=== PATIENT | female | born 1995 | race Caucasian/White ===

== ENCOUNTER 2019-04-01 07:23 | Emergency (ER) | payer OTHER ==
--- NOTE | 2019-04-01 07:54 | UC ---
Complaint Female HPI - HPI Summary HPI Summary: 4 days of dysuria, urinary frequency and burning. Azo OTC was helping initially that not anymore. Now has mild back pain. Feels like UTIs she has had in the past. No fever, nausea/vomiting. - History Of Current Complaint Chief Complaint: UCGU Stated Complaint: LOWER BACK PAIN Time Seen by Provider: 04/01/19 07:26 Hx Obtained From: Patient Hx Last Menstrual Period: does get Onset/Duration: Gradual Onset, Lasting Days, Still Present Timing: Constant Severity Initially: Moderate Severity Currently: Moderate Pain Intensity: 6 Pain Scale Used: 0-10 Numeric Character: Burning Aggravating Factor(s): Urination Alleviating Factor(s): Nothing Associated Signs And Symptoms: Positive: Back Pain. Negative: Fever, Vaginal Bleeding/Discharge, Nausea - Allergies/Home Medications Allergies/Adverse Reactions: Allergies Allergy/AdvReac Type Severity Reaction Status Date / Time No Known Allergies Allergy Verified 11/20/15 08:04 PMH/Surg Hx/FS Hx/Imm Hx Previously Healthy: Yes - Surgical History Surgical History: None - Family History Known Family History: Positive: None - Social History Alcohol Use: None Substance Use Type: None Smoking Status (MU): Never Smoked Tobacco - Immunization History Vaccination Up to Date: Yes Review of Systems All Other Systems Reviewed And Are Negative: Yes Constitutional: Positive: Negative Respiratory: Positive: Negative Cardiovascular: Positive: Negative Gastrointestinal: Positive: Abdominal Pain Genitourinary: Positive: Dysuria, Frequency, Urgency Physical Exam Triage Information Reviewed: Yes Appearance: Well-Appearing, No Pain Distress, Well-Nourished Vital Signs: Initial Vital Signs Temp 98.5 F 04/01/19 07:30 Pulse 82 04/01/19 07:30 Resp 16 04/01/19 07:30 BP 164/96 04/01/19 07:30 Pulse Ox 98 04/01/19 07:30 Laboratory Tests 04/01/19 07:40 POC Urine Color Yellow POC Urine Clarity Slightly cloudy POC Urine pH 5.5 POC Ur Specif [place] 1.025 POC Urine Protein 2+ A POC Ur Glucose (UA) Negative POC Urine Ketones Negative POC Urine Blood Trace-intact A POC Urine Nitrite Negative POC Urine Bilirubin 1+ A POC Urine Urobilinogen 1.0 POC U Leukocyte Esteras 1+ A Eyes: Positive: Conjunctiva Clear ENT: Positive: Hearing grossly normal Neck: Positive: Supple Respiratory: Positive: No respiratory distress, No accessory muscle use Cardiovascular: Positive: Pulses Normal Abdomen Description: Positive: Soft. Negative: CVA Tenderness (R), CVA Tenderness (L), Distended, Guarding Musculoskeletal: Positive: No Edema Neurological: Positive: Alert Psychological: Positive: Age Appropriate Behavior Skin: Negative: Rashes Complaint Female Dx - Differential Dx/Diagnosis Provider Diagnosis: UTI (urinary tract infection) Discharge - Sign-Out/Discharge Documenting (check all that apply): Patient Departure All imaging exams completed and their final reports reviewed: No Studies - Discharge Plan Condition: Stable Disposition: HOME Prescriptions: Phenazopyridine TAB* [Pyridium TAB*] 200 mg PO TID #6 tab Sulfamethox/Trimethoprim DS* [Bactrim DS 800/160 TAB*] 1 tab PO BID #10 tab Patient Education Materials: Urinary Tract Infection in Women (ED) Referrals: Bridgette Reyes MD [Primary Care Provider] - If Needed Additional Instructions: WE WILL SEND YOUR URINE FOR CULTURE AND CALL YOU IF YOUR TREATMENT NEEDS TO BE MODIFIED. YOUR BLOOD PRESSURE WAS ELEVATED TODAY (164/96). THIS MAY BE DUE TO YOUR ACUTE CONDITION. MONITOR AND FOLLOW-UP WITH YOUR PCP WITHIN 4 WEEKS IF IT HAS NOT RETURNED TO NORMAL. - Billing Disposition and Condition Condition: STABLE Disposition: Home
[2019-04-01 08:03] VITALS: BP 158/88
--- NOTE | 2019-04-02 15:37 | UC ---
- Progress Note Progress Note: Urine culture shows few enterobacteria, which could indicate possible contamination. If pt's symptoms are improved with anbx - no change and may complete course. If symptoms persisting - should f/u with PCP for recheck Course/Dx - Diagnoses Provider Diagnoses: UTI (urinary tract infection) Discharge - Sign-Out/Discharge Documenting (check all that apply): Post-Discharge Follow Up All imaging exams completed and their final reports reviewed: No Studies - Discharge Plan Condition: Stable Disposition: HOME Prescriptions: Phenazopyridine TAB* [Pyridium TAB*] 200 mg PO TID #6 tab Sulfamethox/Trimethoprim DS* [Bactrim DS 800/160 TAB*] 1 tab PO BID #10 tab Patient Education Materials: Urinary Tract Infection in Women (ED) Referrals: Bridgette Reyes MD [Primary Care Provider] - If Needed Additional Instructions: WE WILL SEND YOUR URINE FOR CULTURE AND CALL YOU IF YOUR TREATMENT NEEDS TO BE MODIFIED. YOUR BLOOD PRESSURE WAS ELEVATED TODAY (164/96). THIS MAY BE DUE TO YOUR ACUTE CONDITION. MONITOR AND FOLLOW-UP WITH YOUR PCP WITHIN 4 WEEKS IF IT HAS NOT RETURNED TO NORMAL. - Billing Disposition and Condition Condition: STABLE Disposition: Home
== END 2019-04-01 08:03 | disposition home or self-care (01) ==
LOC: UCEAST 07:23
DX: N39.0 Urinary tract infection, site not specified (principal); R30.0 Dysuria; R35.0 Frequency of micturition
CPT/HCPCS: 81003; 87086; 99212; G0463

== ENCOUNTER 2019-04-02 09:25 | Emergency (ER) | payer OTHER ==
--- NOTE | 2019-04-02 10:07 | ED ---
Abdominal Pain/Female - HPI Summary HPI Summary: Patient is a 23-year-old female presenting to the ED with a recent diagnosis of kidney infection. She states she was seen at urgent care yesterday due to bilateral flank pain. She was diagnosed with a kidney infection and placed on Bactrim. It was found at that time she had elevated BP of 168/100. She was told to follow-up with her PCP within 4 weeks for a recheck. Patient is currently not on BP medications. She states she is otherwise healthy, although she is obese. She denies any UTI symptoms currently, but continues to endorse bilateral flank pain. Denies any gross hematuria. Denies any abdominal pain, nausea, vomiting, diarrhea, constipation. She did have episodes of nausea and vomiting yesterday, but denies any today. Denies any fevers, sweats, chills. Denies any CP, however is endorsing mild SOB. She states this is new for her and has no history of asthma. She is here today to assess her elevated BP. She is endorsing a mild headache. - History of Current Complaint Chief Complaint: EDGeneral Stated Complaint: HIGH BLOOD PRESSURE PER PT Time Seen by Provider: 04/02/19 09:31 Hx Obtained From: Patient Hx Last Menstrual Period: does get ?: No Onset/Duration: Sudden Onset Timing: Constant Severity Initially: Moderate Severity Currently: Moderate Pain Intensity: 7 Pain Scale Used: 0-10 Numeric Radiates: No Radiates to: Flank - bilateral Aggravating Factor(s): Nothing Alleviating Factor(s): Nothing Associated Signs and Symptoms: Positive: Negative - Risk Factors Ectopic Risk Factor: Negative Ovarian Torsion Risk Factor: Reproductive Age Allergies/Adverse Reactions: Allergies Allergy/AdvReac Type Severity Reaction Status Date / Time No Known Allergies Allergy Verified 04/02/19 09:35 PMH/Surg Hx/FS Hx/Imm Hx Previously Healthy: Yes Endocrine/Hematology History: Denies: Hx Diabetes, Hx Thyroid Disease Cardiovascular History: Denies: Hx Hypertension Respiratory History: Denies: Hx Asthma, Hx Chronic Obstructive Pulmonary Disease (COPD) GI History: Denies: Hx Ulcer - Immunization History Hx Pertussis Vaccination: No Immunizations Up to Date: Yes Infectious Disease History: No Infectious Disease History: Denies: Hx Hepatitis, Hx Human Immunodeficiency Virus (HIV), Traveled Outside the [place] in Last 30 Days - Family History Known Family History: Positive: None - Social History Occupation: Employed Full-time Lives: With Family Alcohol Use: None Hx Substance Use: No Substance Use Type: Reports: None Hx Tobacco Use: No Smoking Status (MU): Never Smoked Tobacco Review of Systems Constitutional: Negative Negative: Fever, Chills, Fatigue, Skin Diaphoresis Negative: Palpitations, Chest Pain Negative: Shortness Of Breath, Cough Positive: Nausea Genitourinary: Negative Positive: no symptoms reported, see HPI Negative: Arthralgia, Myalgia Skin: Negative All Other Systems Reviewed And Are Negative: Yes Physical Exam Triage Information Reviewed: Yes Vital Signs On Initial Exam: Initial Vitals Temp Pulse Resp BP Pulse Ox 98.2 F 100 18 164/107 98 04/02/19 09:25 04/02/19 09:25 04/02/19 09:25 04/02/19 09:25 04/02/19 09:25 Vital Signs Reviewed: Yes Appearance: Positive: Well-Appearing, Well-Nourished Skin: Positive: Skin Color Reflects Adequate Perfusion Head/Face: Positive: Normal Head/Face Inspection Eyes: Positive: EOMI, Conjunctiva Clear Neck: Positive: No Lymphadenopathy Respiratory/Lung Sounds: Positive: Clear to Auscultation, Breath Sounds Present Cardiovascular: Positive: RRR, Pulses are Symmetrical in both Upper and Lower Extremities Abdomen Description: Positive: Nontender, No Organomegaly, Soft. Negative: CVA Tenderness (R), CVA Tenderness (L) Musculoskeletal: Positive: Normal, Strength/ROM Intact Neurological: Positive: Alert, Oriented to Person Place, Time Diagnostics - Vital Signs Vital Signs Temp Pulse Resp BP Pulse Ox 04/02/19 09:35 99 99 04/02/19 09:25 98.2 F 100 18 164/107 98 - Laboratory Result Diagrams: 04/02/19 09:59 04/02/19 09:59 Lab Statement: Any lab studies that have been ordered have been reviewed, and results considered in the medical decision making process. Abdominal Pain Fem Course/Dx - Course Course Of Treatment: During this course of treatment, the patient is evaluated for elevated BP as well as recent diagnosis of kidney infection. She was placed on Bactrim yesterday and has taken 2 doses. She continues to deny any fevers, sweats, chills. Denies any nausea or vomiting currently, however had this yesterday. Patient states she would like to be evaluated for her elevated BP. BP on arrival is 164/107. Labs obtained and are WNL. Repeat BP is 156/ 90. Patient has been complaining of a headache for the past 3 weeks. It was explained to the patient is a possibility her elevated BP is due to her having a headache. She denies any flank pain currently. Patient is DC'd with hypertension. - Diagnoses Differential Diagnosis: Positive: Renal Colic, Urinary Tract Infection Provider Diagnoses: Hypertension Discharge - Sign-Out/Discharge Documenting (check all that apply): Patient Departure Patient Received Moderate/Deep Sedation with Procedure: No - Discharge Plan Condition: Stable Disposition: HOME Patient Education Materials: Hypertension (ED) Referrals: Bridgette Reyes MD [Primary Care Provider] - Additional Instructions: Please follow up with your hypertension - Billing Disposition and Condition Condition: STABLE Disposition: Home
[2019-04-02 10:19] LABS: ABS Basophils 0.1 10^3/ul (0-0.2); ABS Eosinophils 0.1 10^3/ul (0-0.6); ABS Lymphocytes 2.6 10^3/ul (1.0-4.8); ABS Monocytes 0.7 10^3/ul (0-0.8); ABS Neutrophils 5.4 10^3/ul (1.5-7.7); Eosinophil % 1.3 %; Hematocrit 43 % (35-47); Hemoglobin 14.8 g/dL (12.0-16.0); Mean Corpuscular HGB Conc 34 g/dL (31-36); Mean Corpuscular Hemoglobin 31 pg (27-31); Mean Corpuscular Volume 90 fL (80-97); Mean Platelet Volume 8.6 fL (7.4-10.4); Nucleated Red Blood Cells % 0.1; Platelet Count 306 10^3/uL (150-450); Red Cell Distribution Width 13 % (10-15); White Blood Count 8.9 10^3/uL (3.5-10.8)
[2019-04-02 10:23] LABS: Albumin 4.5 g/dL (3.2-5.2); Anion Gap 9 mmol/L (2-11); CO2 Carbon Dioxide 25 mmol/L (22-32); Calcium 10.3 mg/dL (8.6-10.3); Chloride 104 mmol/L (101-111); Magnesium 1.9 mg/dL (1.9-2.7); Sodium 138 mmol/L (135-145)
[2019-04-02 10:29] LABS: ALT 37 U/L (7-52); AST 25 U/L (13-39); Albumin/Globulin Ratio 1.4 (1-3); Alkaline Phosphatase 60 U/L (34-104); BUN/Creatinine Ratio 14.6 (8-20); Blood Urea Nitrogen 15 mg/dL (6-24); C Reactive Protein 4.47 mg/L (<8.01); EGFR African American 81.8 (>60); EGFR Non-African American 67.6 (>60); Globulin 3.2 g/dL (2-4); Glucose 95 mg/dL (70-100); Total Protein 7.7 g/dL (6.4-8.9)
[2019-04-02 11:06] LABS: HCG Pregnancy < 0.60 mIU/mL
[2019-04-02 11:37] VITALS: BP 184/108
[2019-04-02 11:44] LABS: Urine Appearance Cloudy; Urine Bilirubin Negative (Negative); Urine Blood Negative (Negative); Urine Color Amber; Urine Glucose Negative (Negative); Urine Ketones Negative (Negative); Urine Nitrite Negative (Negative); Urine Protein Negative (Negative); Urine Specific Gravity 1.016 (1.010-1.030); Urine Urobilinogen Negative (Negative)
== END 2019-04-02 11:41 | disposition home or self-care (01) ==
LOC: ED 09:25
DX: I10 Essential (primary) hypertension (principal); E66.9 Obesity, unspecified; Z68.42 Body mass index [BMI] 45.0-49.9, adult
CPT/HCPCS: 36415; 80053; 81003; 83605; 83690; 83735; 84702; 85025; 86140; 99283

== ENCOUNTER 2019-12-11 07:47 | Emergency (ER) | payer OTHER ==
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
--- OUTSIDE RECORDS SUMMARY | 2019-12-11 07:56 | XMS REPORT | Continuity of Care Document ---
:1995 External Reference #:[id number] Author Name Milli Ghotra M.D. (transmitted by agent of provider Lisset Clayton) Address [address] [place] [address] Care Team Providers Name Role Phone Bridgette Reyes MD - Care Team Information Marketing Project Lead [phone] Family Medicine Problems Description No Information Available Social History Type Date Description Comments Sex Unknown Tobacco Use Start: Unknown Never Smoked Cigarettes Smoking Status Reviewed: 11/19/19 Never Smoked Cigarettes ETOH Use Rarely consumes alcohol Tobacco Use Start: Unknown Patient has never smoked Recreational Drug Use Denies Drug Use Exercise Type/Frequency Exercises regularly gym 2-3 times per week, bike, treadmill and ellipticle Allergies, Adverse Reactions, Alerts Active Allergies Reaction Severity Comments Date Victoza nausea and vomiting 07/31/2018 Inactive Allergies NKDA 07/28/2018 Medications Active Medications SIG Qnty Indications Ordering Provider Date Amlodipine Besylate 1 by mouth every Unknown 5mg day Tablets Metformin HCL 1 by mouth twice Unknown 500mg Tablets a day Bupropion Unknown Immunizations Description No Information Available Vital Signs Date Vital Result Comment 11/19/2019 11:34am Height 62 inches 5'2" Heart Rate 86 /min BP Systolic 138 mmHg BP Diastolic 86 mmHg Respiratory Rate 22 /min O2 % BldC Oximetry 98 % 05/19/2019 8:04am Height 62 inches 5'2" Heart Rate 92 /min BP Systolic 130 mmHg BP Diastolic 82 mmHg Respiratory Rate 18 /min Body Temperature 98.0 F Pain Level 2 Results Description No Information Available Procedures Description No Information Available Medical Devices Description No Information Available Encounters Description No Information Available Assessments Description No Information Available Plan of Treatment Future Appointment(s):04/29/2020 4:30 pm - Lenore Batres MD at [facility] Functional Status Description No Information Available Mental Status Description No Information Available Referrals Description No Information Available
--- OUTSIDE RECORDS SUMMARY | 2019-12-11 07:56 | XMS REPORT | Continuity of Care Document ---
:1995 External Reference #:[id number] Author Name Carlene Smallwood O.D. Address [address] [place] [address] Care Team Providers Name Role Phone Bridgette Reyes M.D. - Family Care Team Information Adjunct Psychology Instructor Medicine Pooja Chan D.O. - Pediatrics Care Team Information Adjunct Psychology Instructor Problems Active Problems Provider Date Insulin resistance - type A Onset: Myopia Carlene Smallwood O.D. Onset: 06/18/2016 Tear film insufficiency Carlene Smallwood O.D. Onset: 10/25/2017 Social History Type Date Description Comments Sex Unknown ETOH Use Rarely consumes alcohol Tobacco Use Start: Unknown Patient has never smoked Recreational Drug Use Denies Drug Use Smoking Status Reviewed: 11/06/19 Patient has never smoked Allergies, Adverse Reactions, Alerts Description No Known Drug Allergies Medications Active Medications SIG Qnty Indications Ordering Provider Date Metformin HCL ER Take 2 Tablets By Unknown 500mg Mouth Twice A Day Tablets ER 24HR With Meals Amlodipine Besylate Take 2 To 3 Unknown 2.5mg Tablets By Mouth Tablets Once Daily Bupropion Hydrochloride Take 1 Tablet By Unknown ER (XL) Mouth Once Daily 150mg Tablets ER 24HR Immunizations Description No Information Available Vital Signs Description No Information Available Results Description No Information Available Procedures Description No Information Available Medical Devices Description No Information Available Encounters Description No Information Available Assessments Date Code Description Provider 11/06/2019 H04.123 Dry eye syndrome of bilateral lacrimal Carlene Smallwood O.D. glands 11/06/2019 H52.13 Myopia, bilateral Carlene Smallwood O.D. Plan of Treatment 11/06/2019 - Carlene Smallwood O.D.H04.123 Dry eye syndrome of bilateral lacrimal glandsComments:refresh rewetting drops for contacts 3-4 times a dayFollow up:1 Year Follow Up You can expect to have your eyes dilated at your next visit. If Dr. Smallwood orders any additional testing, it may require extra time. We recommend that you bring sunglasses, as dilation drops often make you light sensitive until they wear off. We always recommend you bring someone to drive you home if you are uncomfortable driving with your eyes dilated. If you have any questions before your next visit, feel free to call our office at .H52.13 Myopia, bilateralComments:You have Myopia, or near sightedness. I have given you a prescription for glasses. Functional Status Description No Information Available Mental Status Description No Information Available Referrals Description No Information Available
[2019-12-11 08:18] VITALS: BP 140/90
[2019-12-11 08:25] LABS: Influenza A Molecular POSITIVE (Negative)
[2019-12-11] MEDS ORDERED: Acetaminophen TAB* 325 MG PO ONE (08:46)
--- NOTE | 2019-12-11 08:57 | UC ---
FLU HPI - HPI Summary HPI Summary: Patient's 24-year-old female who states S Ray she developed a intermittent cough. Patient states last night she developed a fever. Patient with a sore throat and body aches. Patient without any nausea or vomiting. Patient has not taken any akfm-[id number]-ulebikr medications. 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 Patient to get the flu vaccine this year. Patient does have insulin resistance and is on metformin. Patient' s has a remote history of using inhaler for asthma but has not this time. Patient states she does not feel short of breath but states that when she coughs it feels tight. Patient states she's not pertinent. Medications as entered in the EMR reviewed this visit. - History of Current Complaint Chief Complaint: UCGeneralIllness Stated Complaint: SORE THROAT HEADACHE FEVER Time Seen by Provider: 12/11/19 08:34 Hx Obtained From: Patient Hx Last Menstrual Period: 12/11/19 Severity Currently: Mild Severity Initially: Mild Pain Intensity: 1 Pain Scale Used: 0-10 Numeric Associated Signs & Symptoms: Positive: Fever - Allergy/Home Medications Allergies/Adverse Reactions: Allergies Allergy/AdvReac Type Severity Reaction Status Date / Time No Known Allergies Allergy Verified 12/11/19 07:59 Home Medications: Home Medications amLODIPine TAB* [Norvasc 5 mg TAB*] 1 tab PO DAILY 12/11/19 [History Confirmed 12/11/19] buPROPion TAB* [Wellbutrin TAB*] 1 tab PO DAILY WITH MEAL 12/11/19 [History Confirmed 12/11/19] metFORMIN* [Glucophage 1000 MG TAB *] 1 tab PO DAILY 12/11/19 [History Confirmed 12/11/19] PMH/Surg Hx/FS Hx/Imm Hx Previously Healthy: Yes Endocrine History: Diabetes - insulin resistance- Polycystic ovary - Surgical History Surgical History: None - Family History Known Family History: Positive: Non-Contributory - Social History Occupation: Employed Full-time Lives: With Family Alcohol Use: Rare Substance Use Type: None Smoking Status (MU): Never Smoked Tobacco - Immunization History Vaccination Up to Date: Yes Review of Systems All Other Systems Reviewed And Are Negative: Yes Constitutional: Positive: Fever Skin: Positive: Negative Eyes: Positive: Negative ENT: Positive: Sore Throat, Nasal Discharge, Sinus Congestion Respiratory: Positive: Cough. Negative: Shortness Of Breath Cardiovascular: Positive: Negative Gastrointestinal: Positive: Negative Genitourinary: Positive: Negative Physical Exam - Summary Physical Exam Summary: Vital Signs Reviewed: Yes A+Ox3, no distress, intermittent cough Eyes: Conjunctiva Clear, FILOMENA. EOM intact and full ENT: Hearing grossly normal TM x 2 clear, turbinates inflammed and boggy, + PND , mmoist, uvula midline, no exudate, no erythema Neck: Positive: Supple Respiratory: Positive: No respiratory distress, No accessory muscle use + CTA throughout no w/r easy sentences Cardiovascular: RRR , borderline tachy, nl s1, s2 no m/r CBT <2 sec abd soft + BS nt/nd no guarding, no distension Musculoskeletal Exam: JAQUEZ x 4 without difficulty Strength Intact, ROM Intact Neurological: Positive: Alert, + sensation throughout Psychological: Positive: Normal Response To examiner Skin: Positive: no rash, no ecchymosis Triage Information Reviewed: Yes Vital Signs: Initial Vital Signs Temp 100.9 F 12/11/19 08:02 Pulse 122 12/11/19 08:02 Resp 18 12/11/19 08:02 BP 0/0 12/11/19 08:02 Pulse Ox 96 12/11/19 08:02 Flu Course/Dx - Course Course Of Treatment: Patient presents to urgent care reporting 12 hours of cough, body aches, fever. Patient denies short of breath but states it feels tight with coughing. No [id number] medications taken. On exam shows an elevated temperature and heart rate. Patient is nontoxic appearing with an intermittent cough. Patient does have sinus congestion postnasal drip. Patient's lungs are clear. Abdomen is soft. Patient's influenza A is positive. Patient ultrasound. Posterior patient on Tamiflu twice a day for 5 days. Patient with a total of 7 per hospital policy and recommendations. Encourage patient to stay hydrated. Reviewed secretion precautions. Motrin topical [id number] products. We' ll send the prescription report Tamiflu as well as an MDI should the patient needed. Patient comfortable in agreement with plan.. strict return precautions discussed. - Differential Dx/Diagnosis Provider Diagnosis: Influenza A Discharge ED - Sign-Out/Discharge Documenting (check all that apply): Patient Departure All imaging exams completed and their final reports reviewed: No Studies - Discharge Plan Condition: Stable Disposition: HOME Prescriptions: Albuterol HFA INHALER* [Ventolin HFA Inhaler*] 1 - 2 puff INH Q4H PRN #1 mdi PRN Reason: wheeze Oseltamivir Phosphate [Tamiflu] 75 mg PO BID #10 capsule Patient Education Materials: Influenza (ED) Forms: *Work Release Referrals: Bridgette Reyes MD [Primary Care Provider] - Additional Instructions: - Stay well hydrated. Drink plenty of non-alcoholic, non-caffinated beverages. - Alternate ibuprofen (Advil, Motrin) 600mg and Tylenol 1000mg every 3 hours for pain or fever. Take with food. Do NOT take for more than 4-5 days. - These infections are spread by secretions - do NOT share eating or drinking utensils - clean items you share with other people such as cell phones, computer mouse, TV remote, cot - Take Tamiflu as prescribed until gone - Okay to use inhaler - 2 puffs every 4 hours as needed for cough or wheeze - humidify the air in the room where you sleep - boil water, run a hot steam shower, vaporizer, cups of water by heat register - okay to take over the counter decongestant and cough medication - get plenty of restful sleep. - contact your doctor or return with questions or concerns - Billing Disposition and Condition Condition: STABLE Disposition: Home
[2019-12-11] MEDS ORDERED: Acetaminophen TAB* 325 MG ONE (08:58)
== END 2019-12-11 09:05 | disposition home or self-care (01) ==
LOC: UCEAST 07:47
DX: J10.1 Influenza due to other identified influenza virus with other respiratory manifestations (principal); E11.9 Type 2 diabetes mellitus without complications; J45.909 Unspecified asthma, uncomplicated; Z79.84 Long term (current) use of oral hypoglycemic drugs
CPT/HCPCS: 87651; 99202; A9270-GY; G0463

== ENCOUNTER 2023-10-20 20:13 | Inpatient (IN) ==
[2023-10-20] MEDS ORDERED: Oxytocin in LR 20,000 MILLI.UNIT/1,000 ML BAG IV ONE (20:36)
[2023-10-20] MEDS ORDERED: fentaNYL 100 mcg/2 ml 50 MCG/ML VIAL ONE (21:02)
[2023-10-20] MEDS ORDERED: Ondansetron 4 mg VIAL 2 MG/ML 2 ml VIAL ONE (21:46)
[2023-10-20] MEDS ORDERED: Dexamethasone IV 4 MG/ML VIAL 1 ml VIAL ONE (21:46)
[2023-10-20] MEDS ORDERED: Oxytocin 10 UNITS/ML 1 ML VIAL ONE (21:46)
[2023-10-20] MEDS ORDERED: KETAMINE HCL 10 MG/ML 20 ml VIAL (200 MG) ONE (21:46)
[2023-10-20] MEDS ORDERED: Succinylcholine 200 mg VIAL 20 mg/ml 10 ml VIAL (200 mg) ONE (21:46)
[2023-10-20] MEDS ORDERED: Midazolam 2 mg/2 ml VIAL 1 mg/ml 2 ml VIAL (2 mg) ONE (21:46)
[2023-10-20] MEDS ORDERED: Ondansetron 4 mg VIAL 2 MG/ML 2 ml VIAL IV PRN (21:59)
[2023-10-20] MEDS ORDERED: Sodium Citrate/Citric Acid LIQ 15 ML UDC PO ONE (21:59)
[2023-10-20] MEDS ORDERED: Metoclopramide 5 MG/ML VIAL (10 mg) IV PRN (21:59)
[2023-10-20] MEDS ORDERED: Naloxone 0.4 mg VIAL 0.4 mg/ml 1 ml VIAL IV PRN (21:59)
[2023-10-20] MEDS ORDERED: Buffered Lidocaine 1% SYRIN 1 ml INTRADERM ONE (21:59)
[2023-10-20] MEDS ORDERED: HYDROcodone/ACETAMIN 5/325 mg TAB PO PRN (21:59)
[2023-10-20] MEDS ORDERED: fentaNYL 100 mcg/2 ml 50 MCG/ML VIAL IV PRN (21:59)
[2023-10-20] MEDS ORDERED: Lactated Ringers 1000 ml BAG 1,000 ML IV SCH ×3 (22:00→23:45)
[2023-10-20] MEDS ORDERED: Sodium Citrate/Citric Acid LIQ 15 ML UDC ONE (22:16)
[2023-10-20] MEDS ORDERED: Phenylephrine 40 mcg/mL 10mL (400mcg) SYRINGE ONE (23:17)
[2023-10-20] MEDS ORDERED: Witch Hazel PAD JAR TOPICAL PRN (23:51)
[2023-10-20] MEDS ORDERED: Glycerin ADULT 2.4 gm SUPP PR PRN (23:51)
[2023-10-20] MEDS ORDERED: Oxytocin in LR 20,000 MILLI.UNIT/1,000 ML BAG IV SCH (23:55)
[2023-10-20 23:57] LABS: ABS Basophils 0.1 10^3/uL (0.0-0.1); ABS Lymphocytes 1.6 10^3/uL (1.0-4.8); ABS Monocytes 0.8 10^3/uL (0.0-0.9); Eosinophil % 0.2 %; Hemoglobin 11.3 g/dL (11.5-14.3); Lymphocyte % 8.8 %; Mean Corpuscular Hemoglobin 30.8 pg (27-33); Mean Corpuscular Hgb Conc 34.2 g/dL (31-36); Mean Platelet Volume 9.7 fL (7.5-11.2); Platelet Count 303 10^3/uL (150-450); Red Blood Count 3.67 10^6/uL (3.63-4.92); Red Cell Distribution Width 13.2 % (12-17); White Blood Count 18.5 10^3/uL (3.8-11.8)
[2023-10-21] MEDS ORDERED: Lactated Ringers 1000 ml BAG 1,000 ML IV ONE (00:32)
[2023-10-21 07:33] VITALS: BP 101/73
[2023-10-21 09:49] LABS: ABS Lymphocytes 1.1 10^3/uL (1.0-4.8); ABS Monocytes 0.3 10^3/uL (0.0-0.9); ABS Neutrophils 12.8 10^3/uL (1.5-7.6); ABS Nucleated RBC 0.01 10^3/ul; Hematocrit 25.9 % (35-45); Hemoglobin 9.1 g/dL (11.5-14.3); Lymphocyte % 7.6 %; Mean Corpuscular Hemoglobin 31.4 pg (27-33); Mean Corpuscular Volume 89.9 fL (80-97); Nucleated Red Blood Cells % 0.1 %/100WBC (0.0-0.8); Platelet Count 245 10^3/uL (150-450); Red Blood Count 2.88 10^6/uL (3.63-4.92); Red Cell Distribution Width 13.5 % (12-17); White Blood Count 14.2 10^3/uL (3.8-11.8)
[2023-10-21 10:02] LABS: Activated Partial Thrombo Time 28.2 seconds (26.0-38.0); INR 1.09 (0.83-1.13)
[2023-10-21 10:05] LABS: Platelet Count 249 10^3/ul (150-450)
[2023-10-21 10:06] LABS: Calcium 8.8 mg/dL (8.6-10.3); Creatinine, Serum 0.73 mg/dL (0.51-0.95); Potassium 4.1 mmol/L (3.5-5.0); eGFR CKD-EPI 116.2 (>60)
[2023-10-21 10:17] LABS: Schistocytes ABSENT
[2023-10-23 14:45] LABS: Cytomegalovirus IgG Antibody Negative (Negative); Herpes Simplex Virus I IgG AB Negative (Negative); Rubella IgG Antibody Equivocal; Rubella IgG Antibody Index 0.8; Toxoplasma IgG Antibody Negative (Negative); Toxoplasma IgG Antibody Index <3 IU/mL
[2023-10-23 15:19] LABS: DRVVT Screen Ratio 1.01 ratio (<1.20); LAC APTT 29 sec (25 - 37); LAC INR 1.1 (0.9-1.1); Prothrombin Time(LAC) 12.3 sec (9.4 - 12.5)
[2023-10-23 20:13] LABS: Cyclic Citrullinated Peptide <15.6 U
[2023-10-25 15:11] LABS: Parvovirus (B19) IgG Antibody Equivocal (Negative); Parvovirus (B19) IgM Antibody Negative (Negative)
== END 2023-10-21 13:05 | disposition home or self-care (01) | DRG 769 ==
LOC: MCHOBOUT 20:13 → MCHOB 21:29
PROVIDERS: ADMIT Obstetrics & Gynecology; ATTEND Obstetrics & Gynecology
PROC: O.GYD&C (2023-10-20 22:00)